=== PATIENT | female | born 1980 | race Two or more races ===

== ENCOUNTER 2017-01-12 18:16 | Emergency (ER) | payer OTHER ==
[2017-01-12] MEDS ORDERED: IBUPROFEN 200 MG TAB PO ONE (18:21)
[2017-01-12] MEDS ORDERED: HYDROCODONE/APAP 5/325 TAB PO ONE (18:21)
[2017-01-12] MEDS ORDERED: HYDROCOD/APAP 5/325 PREPACK#6 BTL TAKEHOME ONE (18:21)
--- NOTE | 2017-01-12 18:25 | EDPHY ---
H & P HPI/ROS: HPI CHIEF COMPLAINT: Back pain work related injury HISTORY OF PRESENT ILLNESS: This patient very pleasant 36-year-old female denies any significant medical history does not take any daily medications, she presents emergency room from work with work colleagues after she states she developed low back pain at work. She was working on a piece of machinery and pulling a bolt bent over when she pulled a bolt she felt a pop in her lower back. She now has sharp stabbing pain midline lumbar spine that radiates out to both sides of her gluteus. Does not go down her legs. She denies saddle anesthesia. Denies numbness or tingling, denies focal weakness. She is able to ambulate. However she does have 8/10 pain centrally located lumbar spine low region. Past Medical History: Denies any significant medical history Past Surgical History: Denies significant surgical history Social History: Denies daily use of drugs alcohol tobacco products Family History: Noncontributory ROS REVIEW OF SYSTEMS: A comprehensive 10 point review of systems is otherwise negative aside from elements mentioned in the history of present illness. Exam Constitutional appears well nontoxic triage nursing summary reviewed, vital signs reviewed, awake/alert. Eyes normal conjunctivae and sclera, EOMI, PERRLA. HENT normal inspection, atraumatic, moist mucus membranes, no epistaxis, neck supple/ no meningismus, no raccoon eyes. Respiratory clear to auscultation bilaterally, normal breath sounds, no respiratory distress, no wheezing. Cardiovascular rate normal, regular rhythm, no murmur, no edema, distal pulses normal. Gastrointestinal soft, non-tender, no rebound, no guarding, normal bowel sounds, no distension, no pulsatile mass. Genitourinary no CVA tenderness. Musculoskeletal no significant tenderness midline lumbar spine about step-offs, no crepitus,full range of motion, no calf swelling, no tenderness of extremities , no meningismus, good pulses, neurovascularly intact. Skin pink, warm, & dry, no rash, skin atraumatic. Neurologic awake, alert and oriented x 3, AAOx3, moves all 4 extremities equally, motor intact, sensory intact, CN II-XII intact, normal cerebellar, normal vision, normal speech. Good leg strength bilaterally, no saddle anesthesia. Normal reflexes. Psychiatric normal mood/affect. Heme/Lymph/Immune no lymphadenopathy. Differential Diagnosis: Includes but is not limited to in a particular order, lumbar strain, musculoskeletal strain, disc herniation, annular tear, nerve root compression, no evidence of cauda equina syndrome Medical Decision Making: Plan for this patient x-ray lumbar spine to rule out significant malalignment or fracture. Ibuprofen 800 mg, Panora 5 mg. Re-evaluation: 1822: Will obtain lumbar spine x-ray if this is normal will placed on anti- inflammatory pain medicine and narcotic pain medicine. Recommend following up with kelby Villalta. She understands this. ED x-ray lumbar spine: Negative for acute fracture malalignment. 184: Re-evaluation at this time patient resting comfortably no acute distress. Feels better after anti-inflammatory pain medicine narcotic. X-ray reviewed. Recommend icing her back pain medicine as needed. Follow up with primary care doctor kelby Villalta. Return emergency room if there is any worsening symptoms includes saddle anesthesia, bowel or bladder incontinence, leg weakness she understands Source: Patient - Medical/Surgical History Hx Asthma: No Hx Chronic Respiratory Disease: No Hx Diabetes: No Hx Cardiac Disease: No Hx Renal Disease: No Hx Cirrhosis: No Hx Alcoholism: No Hx HIV/AIDS: No Hx Splenectomy or Spleen Trauma: No Other PMH: DENIES - Social History Smoking Status: Never smoked Constitutional: Initial Vital Signs Temperature (C) 36.9 C 01/12/17 18:20 Heart Rate 79 01/12/17 18:20 Respiratory Rate 18 01/12/17 18:20 Blood Pressure 135/79 H 01/12/17 18:20 O2 Sat (%) 96 01/12/17 18:20 O2 Delivery Mode Room Air Allergies/Adverse Reactions: No Known Allergies Allergy (Verified 01/12/17 18:29) Home Medications: Medication Instructions Recorded Hydrocodone/APAP 5/325 [Panora 1 - 2 tab PO Q4H PRN #14 tab 01/12/17 5/325] Ibuprofen [Motrin (*)] 800 mg PO Q6-8PRN #10 tab 01/12/17 Medical Decision Making - Data Points Medications Given: Discontinued Medications Hydrocodone Bitart/Acetaminophen (Panora 5/325mg Prepack#6) 1 btl TAKEHOME EDNOW ONE Stop: 01/12/17 18:22 Last Admin: 01/12/17 18:38 Dose: 1 btl Hydrocodone Bitart/Acetaminophen (Panora 5/325) 1 tab PO EDNOW ONE Stop: 01/12/17 18:22 Last Admin: 01/12/17 18:37 Dose: 1 tab Ibuprofen (Motrin) 800 mg PO EDNOW ONE Stop: 01/12/17 18:22 Last Admin: 01/12/17 18:36 Dose: 800 mg Departure - Departure Disposition: Home, Routine, Self-Care Clinical Impression: Back sprain Condition: Good Instructions: Low Back Strain (ED), Acute Low Back Pain (ED) Additional Instructions: 1.Return emergency room if you have any worsening symptoms questions or concerns. 2. Please follow up with her workman's Comp doctor through your employer. Prescriptions: Hydrocodone/APAP 5/325 [Panora 5/325] 1 - 2 tab PO Q4H PRN #14 tab PRN Reason: Pain, Moderate Ibuprofen [Motrin (*)] 800 mg PO Q6-8PRN #10 tab
[2017-01-12 18:33] VITALS: TEMP 98.4
[2017-01-12 19:05] VITALS: BP 102/63; PULSE 73; RESP 16; O2SAT 98
== END 2017-01-12 19:02 | disposition home or self-care (01) ==
LOC: CED 18:16
DX: S33.5XXA Sprain of ligaments of lumbar spine, initial encounter (principal); X58.XXXA Exposure to other specified factors, initial encounter; Y92.69 Other specified industrial and construction area as the place of occurrence of the external cause; Y99.0 Civilian activity done for income or pay; Y93.89 Activity, other specified
CPT/HCPCS: 72100-PO